=== PATIENT | male | born 1980 | race Caucasian/White ===

== ENCOUNTER 2017-05-11 18:13 | Observation (INO) | payer OTHER ==
[~2017-05-11] VITALS: Ht 193 cm; Wt 170.0 kg
[~2017-05-11 18:13] MED LIST: AMLO10TA2 PO; ASPI-110 PO; ATOR40TA16 PO; DULO1CAP2 PO; GABA800T PO; GLIP10TA6 PO; IBUP800T23 PO; ISOS30TA3 PO; METF1000 PO; OMEP40CA2 PO; PARO1TAB73 PO; TAMS0.4C4 PO
[2017-05-11 18:16] VITALS: BP 143/85; PULSE 135; RESP 20; TEMP 98.7; O2SAT 97
[2017-05-11 18:59] VITALS: BP 123/62; PULSE 115; RESP 16; O2SAT 94
[2017-05-11] MEDS ORDERED: LEVO75TA3 PO (19:10)
[2017-05-11] MEDS ORDERED: ASPI325T PO (19:10)
[2017-05-11] MEDS ORDERED: LANTUS2P SQ (19:10)
[2017-05-11] MEDS ORDERED: CANA300T PO (19:10)
[2017-05-11] MEDS ORDERED: NOVORP2 SQ (19:10)
[2017-05-11] MEDS ORDERED: MORPHINE SULFATE 4 MG/ML INJ IV PUSH ONE (19:15)
[2017-05-11] MEDS ORDERED: ASPIRIN 81 MG CHEW TAB PO ONE ×2 (19:15→22:00)
--- NOTE | 2017-05-11 19:15 | PD ---
HPI Chief Complaint: Chest Pain Time Seen by Provider: 18:53 Travel History International Travel<30 days: No Contact w/Intl Traveler<30days: No Traveled to known affect area: No History of Present Illness HPI c/o substernal cp, pressure, nonrad, 04/05, intermittently since wednesday along with syncopal episodes (2 since wednesday). he is currently seeing dr simon (?sp) and will have loop recorder placed on may 24. pt states pcp is in [place]. PFSH Past Medical History Arthritis: Yes Blood Disorders: No Depression: Yes Heart Rhythm Problems: No Cancer: Yes (HODGKINS) Cardiac Catheterization: No Cardiovascular Problems: No High Cholesterol: Yes Chemotherapy: Yes (HX CHEMO OF AND RADIATION TREATMENTS) Chest Pain: Yes Congestive Heart Failure: No Cerebrovascular Accident: Yes Coronary Artery Disease: Yes Diabetes: Yes Patient Takes Glucophage: Yes Diminished Hearing: No Endocrine: No GERD: Yes Genitourinary: No Headaches: Yes Hypertension: Yes Immune Disorder: No Kidney Stones: Yes Musculoskeletal: No Neurologic: Yes Psychiatric: Yes Reproductive: No Respiratory: No Migraines: Yes Myocardial Infarction: No Radiation Therapy: Yes (2006) Seizures: Yes Sleep Apnea: Yes Ulcer: Yes Influenza Vaccination: No Past Surgical History Abdominal Surgery: Yes (GALLBLADDER) Appendectomy: Yes Cardiac Surgery: No Cholecystectomy: Yes Coronary Artery Bypass Graft: No Ear Surgery: No Endocrine Surgery: No Eye Surgery: No Genitourinary Surgery: Yes (urethria opening) Gynecologic Surgery: No Oral Surgery: No Thoracic Surgery: No Tonsillectomy: Yes (AND ADENOIDS) Other Surgery: Yes (ING HERNIA X 2; CHEST BIOPSY) Family History Family Myocardial Infarction: Yes (GRANDMA (MOTHER SIDE) Social History Alcohol Use: Yes (OCC) Tobacco Use: No Substance Use: No Allergies-Medications (Allergen,Severity, Reaction): Coded Allergies: benzonatate (Verified Allergy, Severe, SOB, 05/11/17) lidocaine (Verified Allergy, Severe, RASH, 05/11/17) penicillin G (Verified Allergy, Severe, 05/11/17) ALL "CILLINS" Influenza Virus Vaccines (Verified Adverse Reaction, Severe, Blurred Vision, 05/11/17) dizzines and blurred vision pneumococcal vaccine (Verified Adverse Reaction, Severe, Blurred Vision, ) blurred vision and dizziness Uncoded Allergies: DERMABOND (Allergy, Unknown, 02/20/17) Reported Meds & Prescriptions Reported Meds & Active Scripts Active Reported Invokana (Canagliflozin) 300 Mg Tab 300 Mg PO DAILY Take before 1st meal of day. Novolin R Inj (Insulin Human Regular) 1,000 Unit/10 Ml Vial 0 SQ DIRECTED Sliding Scale As Directed. Lantus Inj (Insulin Glargine) 100 Unit/Ml Inj 5 Unit SQ HS Levothyroxine (Levothyroxine Sodium) 75 Mcg Tab 75 Mcg PO DAILY Aspirin 325 Mg Tab 325 Mg PO ONCE Omeprazole 40 Mg Cap 40 Mg PO DAILY Isosorbide Mononitrate ER (Isosorbide Mononitrate) 30 Mg Yoel 30 Mg PO DAILY Atorvastatin (Atorvastatin Calcium) 40 Mg Tab 40 Mg PO HS Duloxetine DR (Duloxetine HCl) 30 Mg Capdr 30 Mg PO DAILY Glipizide 10 Mg Tab 15 Mg PO BIDAC Take 30 minutes before a meal Tamsulosin (Tamsulosin HCl) 0.4 Mg Cap 0.8 Mg PO HS Gabapentin 800 Mg Tab 800 Mg PO TID Paroxetine (Paroxetine HCl) 30 Mg Tab 30 Mg PO DAILY Amlodipine (Amlodipine Besylate) 10 Mg Tab 10 Mg PO DAILY Metformin (Metformin HCl) 1,000 Mg Tab 1,000 Mg PO BIDPC With meals Ibuprofen 800 Mg Tab 800 Mg PO TID Review of Systems Except as stated in HPI: all other systems reviewed are Neg Cardiovascular: Positive: Chest Pain or Discomfort, Palpitations Physical Exam Narrative GENERAL: obese in no major distress in appearance but claiming he has 10/10 cp SKIN: Warm and dry. HEAD: Atraumatic. Normocephalic. EYES: Pupils equal and round. No scleral icterus. No injection or drainage. ENT: No nasal bleeding or discharge. Mucous membranes pink and moist. NECK: Trachea midline. No JVD. CARDIOVASCULAR: Regular rate and rhythm. RESPIRATORY: No accessory muscle use. Clear to auscultation. Breath sounds equal bilaterally. GASTROINTESTINAL: Abdomen soft, non-tender, nondistended. MUSCULOSKELETAL: Extremities without clubbing, cyanosis, or edema. No obvious deformities. NEUROLOGICAL: Awake and alert. No obvious cranial nerve deficits. Motor grossly within normal limits. Five out of 5 muscle strength in the arms and legs. Normal speech. PSYCHIATRIC: Appropriate mood and affect; insight and judgment normal. Data Data Last Documented VS Vital Signs Date Time Temp Pulse Resp B/P Pulse Ox O2 Delivery O2 Flow Rate FiO2 05/11/17 21:00 104 18 109/59 95 Room Air 05/11/17 18:16 98.7 Orders Electrocardiogram (05/11/17 18:) Complete Blood Count With Diff (05/11/17 18:26) Basic Metabolic Panel (Bmp) (05/11/17 18:26) Ckmb (Isoenzyme) Profile (05/11/17 18:26) Troponin I (05/11/17 18:) Chest, Single Ap (05/11/17 18:) Iv Access Insert/Monitor (05/11/17 18:) Ecg Monitoring (05/11/17 18:) Oxygen Administration (05/11/17 18:) Oximetry (05/11/17 18:) Prothrombin Time / Inr (Pt) (05/11/17 18:) Aspirin Chew (Aspirin Chew) (05/11/17 19:15) Morphine Inj (Morphine Inj) (05/11/17 19:15) CKMB (05/11/17 19:12) CKMB% (05/11/17 19:12) Albuterol Concentrated Neb (Albuterol Co (05/11/17 22:00) Insulin Human Regular Inj (Novolin R Inj (05/11/17 22:00) Admit Order (Ed Use Only) (05/11/17 21:58) Labs Laboratory Tests Test 05/11/17 19:12 White Blood Count 13.6 TH/MM3 Red Blood Count 5.01 MIL/MM3 Hemoglobin 14.6 GM/DL Hematocrit 42.9 % Mean Corpuscular Volume 85.5 FL Mean Corpuscular Hemoglobin 29.1 PG Mean Corpuscular Hemoglobin 34.0 % Concent Red Cell Distribution Width 14.0 % Platelet Count 370 TH/MM3 Mean Platelet Volume 7.8 FL Neutrophils (%) (Auto) 71.2 % Lymphocytes (%) (Auto) 18.2 % Monocytes (%) (Auto) 6.2 % Eosinophils (%) (Auto) 3.6 % Basophils (%) (Auto) 0.8 % Neutrophils # (Auto) 9.7 TH/MM3 Lymphocytes # (Auto) 2.5 TH/MM3 Monocytes # (Auto) 0.8 TH/MM3 Eosinophils # (Auto) 0.5 TH/MM3 Basophils # (Auto) 0.1 TH/MM3 CBC Comment DIFF FINAL Differential Comment Prothrombin Time 10.7 SEC Prothromb Time International 1.0 RATIO Ratio Sodium Level 132 MEQ/L Potassium Level 5.7 MEQ/L Chloride Level 98 MEQ/L Carbon Dioxide Level 27.5 MEQ/L Anion Gap 7 MEQ/L Blood Urea Nitrogen 12 MG/DL Creatinine 0.83 MG/DL Estimat Glomerular Filtration 104 ML/MIN Rate Random Glucose 200 MG/DL Calcium Level 8.6 MG/DL Total Creatine Kinase 157 U/L Creatine Kinase MB LESS THAN 0.5 NG/ML Troponin I LESS THAN 0.02 NG/ML MDM Medical Decision Making Medical Screen Exam Complete: Yes Emergency Medical Condition: Yes Medical Record Reviewed: Yes Interpretation(s) sinus tach 126, pmitrale, incomplete LBBB pattern noted Differential Diagnosis mi v nonstemi v pna v dysrhythmia v anemia v electrolyte abnl Narrative Course NO E/O ANEMIA, NO DYSRHYTHMIA WHILE IN OBSERVATION IN ED, NO ELECTROLYTE ABNL, NO PNA ON CXR, PATIENT WILL BE ADMITTED TO [facility] FOR FURTHER EVALUATION AND CARE Diagnosis Primary Impression: cp r/o mi Admitting Information Admitting Physician Requests: Observation Ari Davies MD May 11, 2017 19:15
[2017-05-11 19:36] LABS: AUTOMATED NEUTROPHIL # 9.7 TH/MM3 (1.8-7.7); BASOPHIL # 0.1 TH/MM3 (0-0.2); BASOPHIL % 0.8 % (0.0-2.0); EOSINOPHIL # 0.5 TH/MM3 (0-0.4); EOSINOPHIL % 3.6 % (0.0-4.0); HEMATOCRIT 42.9 % (39.0-51.0); HEMO FLAGS DIFF FINAL; LYMPH % 18.2 % (9.0-44.0); LYMPHOCYTE # 2.5 TH/MM3 (1.0-4.8); MEAN CELL VOLUME 85.5 FL (80.0-100.0); MEAN CORPUSCULAR HEMOGLOBIN 29.1 PG (27.0-34.0); MONO % 6.2 % (0.0-8.0); NEUT % 71.2 % (16.0-70.0); PLATELET COUNT 370 TH/MM3 (150-450); RED BLOOD COUNT 5.01 MIL/MM3 (4.50-5.90); WHITE BLOOD COUNT 13.6 TH/MM3 (4.0-11.0)
[2017-05-11 19:45] LABS: PROTHROMBIN TIME - PATIENT 10.7 SEC (9.8-11.6)
--- NOTE | 2017-05-11 20:00 | RADRPT ---
EXAM DATE/TIME: 05/11/2017 19:44 [facility] COMPARISON: No previous studies available for comparison. INDICATIONS : Chest pain. MEDICAL HISTORY : Myocardial infarction. SURGICAL HISTORY : None. ENCOUNTER: Initial ACUITY: 2 days PAIN SCORE: 10/10 LOCATION: Left chest FINDINGS: Trace atelectasis seen at both bases. No large effusion demonstrated. No pneumothorax. Heart size wit hin normal limits. CONCLUSION: Minimal bibasilar atelectasis. Castillo Soares MD on May 11, 2017 at 19:58 Board Certified Radiologist. This report was verified electronically.
[2017-05-11 20:18] LABS: ANION GAP 7 MEQ/L (5-15); BICARBONATE 27.5 MEQ/L (21.0-32.0); BLOOD UREA NITROGEN 12 MG/DL (7-18); CHLORIDE 98 MEQ/L (98-107); CREATINE KINASE 157 U/L (39-308); GLOMERULAR FILTRATION RATE 104 ML/MIN (>89); SODIUM (NA) 132 MEQ/L (136-145)
[2017-05-11 20:21] LABS: POTASSIUM 5.7 MEQ/L (3.5-5.1)
[2017-05-11 20:33] LABS: CKMB LESS THAN 0.5 NG/ML (0.5-3.6)
[2017-05-11 21:00] VITALS: BP 109/59; PULSE 104; RESP 18; O2SAT 95
[2017-05-11] MEDS ORDERED: INSULIN HUMAN REGULAR 1,000 UNITS/10 ML VIAL IV PUSH ONE (22:00)
[2017-05-11] MEDS ORDERED: RESP: ALBUTEROL CONC 2.5 MG/0.5 ML NEB NEB ONE (22:00)
[2017-05-11] MEDS ORDERED: ONDANSETRON HCL 4 MG/2 ML VIAL IV PRN (22:00)
[2017-05-11] MEDS ORDERED: NITROGLYCERIN 0.4 MG SL 25 TABS/BTL SL PRN (22:00)
[2017-05-11 22:13] VITALS: O2SAT 97
[2017-05-11] MEDS ORDERED: RESP: ALBUTEROL 2.5 MG/3 ML NEB (SCH) NEB ONE (22:15)
[2017-05-11] MEDS: SODIUM CHLOR 0.9% 1000 ML INJ 1,000 ML IV SCH (22:33)
[2017-05-11] MEDS: HEPARIN SODIUM - SQ 10,000 UNITS/ML VIAL SQ SCH (22:35)
[2017-05-11] MEDS: MORPHINE SULFATE 4 MG/ML INJ IV PRN (22:35)
[2017-05-11 22:56] VITALS: BP 112/108
[2017-05-11 23:19] VITALS: BP 130/72; PULSE 108; RESP 18; TEMP 99.2; O2SAT 97
[2017-05-11 23:26] LABS: CREATINE KINASE 43 U/L (39-308)
--- NOTE | 2017-05-12 00:30 | EKG ---
Date Performed: 05/11/2017 Time Performed: 18:30:54 PTAGE: 37 years EKG: SINUS TACHYCARDIA MODERATE INTRAVENTRICULAR CONDUCTION DELAY ABNORMAL RHYTHM ECG PREVIOUS TRACING : 03/02/2010 10.43 Compared to the previous tracing rate has increased DOCTOR: Marco Antonio Crouch Interpretating Date/Time 05/12/2017 00:28:02
[2017-05-12 00:59] VITALS: PULSE 98
[2017-05-12 03:14] VITALS: BP 130/70; PULSE 106; PULSE 93; RESP 18; TEMP 98.2; O2SAT 99
[2017-05-12 03:22] LABS: CREATINE KINASE 42 U/L (39-308)
[2017-05-12] MEDS: MORPHINE SULFATE 4 MG/ML INJ IV PRN ×2 (04:04→11:50)
[2017-05-12 04:07] VITALS: PULSE 90
[2017-05-12 07:00] VITALS: PULSE 89
[2017-05-12] MEDS ORDERED: GLUCAGON 1 MG/ML VIAL IM/SQ PRN (08:45)
[2017-05-12] MEDS ORDERED: DEXTROSE 50% IN WATER 50 ML VIAL(D50) IV PRN (08:45)
[2017-05-12] MEDS ORDERED: NON-FORMULARY DRUG (Omeprazole 40 MG) PO SCH (09:00)
[2017-05-12] MEDS ORDERED: DULoxetine HCl DR 30 MG CAP PO SCH (09:00)
[2017-05-12] MEDS ORDERED: ISOSORBIDE MONONITRATE 30 MG TAB PO SCH (09:00)
[2017-05-12] MEDS ORDERED: GABAPENTIN 400 MG CAP PO SCH (09:00)
[2017-05-12] MEDS ORDERED: PANTOPRAZOLE SOD 40 MG DELAYED RELEASE TAB PO SCH (09:00)
[2017-05-12] MEDS ORDERED: ASPIRIN 325 MG TAB PO ONE (09:30)
[2017-05-12] MEDS ORDERED: PARoxetine HCL 20 MG TAB PO SCH (09:30)
[2017-05-12] MEDS ORDERED: LEVOTHYROXINE SODIUM 75 MCG TAB PO SCH (09:30)
[2017-05-12] MEDS ORDERED: PILL SPLITTER OTHER PRN (10:00)
[2017-05-12] MEDS ORDERED: REGADENOSON INJ 0.4 MG/5 ML SYR ONE (10:08)
[2017-05-12] MEDS ORDERED: INSULIN ASPART SUPPLEMENTAL SCALE SQ SCH (11:00)
--- NOTE | 2017-05-12 11:13 | HHI.HP ---
HPI Primary Care Physician Non-Staff Chief Complaint Chest pain History of Present Illness This is a 37-year-old male that presents to ED with history of hypertension, diabetes, hyperlipidemia, Hodgkin's lymphoma, congestive heart failure, CVA, and hypothyroidism complaining of intermittent left-sided chest discomfort that feels like "an elephant sitting on me." Lasting 30 minutes diaphoresis on nothing to bring on the discomfort. Nothing to worsen or improve. He states that a 70 times. He also states that he has been passing out. And further states he passes out on average 3-4 times a day and has done so for 1 at 2 years. He was seen at this hospital a couple days ago for the same was discharged. He has appointment with Dr. Mercado have a loop recorder placed on May 24. Review of Systems General: Patient denies fevers, chills recent, and recent travel HEENT: Patient denies headache, sore throat, difficulty swallowing. Cardiovascular: Has the chest discomfort as mentioned above. Denies sensation of heart beating rapidly or irregularly. States he has had 3-4 syncopal episodes a day for the last 1-1/2-2 years. At times diaphoretic. Respiratory: Occasional shortness of breath. Denies inspirational chest discomfort. Denies coughing wheezing or hemoptysis. GI: Occasional nausea. Patient denies vomiting, diarrhea, abdominal pain, bloody stools. Musculoskeletal: Patient denies joint pain or edema. Denies calf pain or edema. Neurovascular: Patient denies numbness, tingling, weakness in extremities. Denies headache. Endocrine: Denies polyuria and polydipsia. Hematologic: Denies easy bruising. Skin: Denies rash or itching. Past Family Social History Allergies: Coded Allergies: benzonatate (Verified Allergy, Severe, SOB, 05/11/17) lidocaine (Verified Allergy, Severe, RASH, 05/11/17) penicillin G (Verified Allergy, Severe, 05/11/17) ALL "CILLINS" Influenza Virus Vaccines (Verified Adverse Reaction, Severe, Blurred Vision, 05/11/17) dizzines and blurred vision pneumococcal vaccine (Verified Adverse Reaction, Severe, Blurred Vision, ) blurred vision and dizziness Uncoded Allergies: DERMABOND (Allergy, Unknown, 02/20/17) Past Medical History Hypertension, diabetes, hyperlipidemia, hypothyroidism, history of Hodgkin's lymphoma with chemotherapy and radiation in the past. Congestive heart failure and CVA. Obesity. Past Surgical History Cholecystectomy, inguinal hernia repair, and tonsillectomy. Reported Medications Reported Meds & Active Scripts Active Reported Invokana (Canagliflozin) 300 Mg Tab 300 Mg PO DAILY Take before 1st meal of day. Novolin R Inj (Insulin Human Regular) 1,000 Unit/10 Ml Vial 0 SQ DIRECTED Sliding Scale As Directed. Lantus Inj (Insulin Glargine) 100 Unit/Ml Inj 5 Unit SQ HS Levothyroxine (Levothyroxine Sodium) 75 Mcg Tab 75 Mcg PO DAILY Aspirin 325 Mg Tab 325 Mg PO ONCE Omeprazole 40 Mg Cap 40 Mg PO DAILY Isosorbide Mononitrate ER (Isosorbide Mononitrate) 30 Mg Yoel 30 Mg PO DAILY Atorvastatin (Atorvastatin Calcium) 40 Mg Tab 40 Mg PO HS Duloxetine DR (Duloxetine HCl) 30 Mg Capdr 30 Mg PO DAILY Glipizide 10 Mg Tab 15 Mg PO BIDAC Take 30 minutes before a meal Tamsulosin (Tamsulosin HCl) 0.4 Mg Cap 0.8 Mg PO HS Gabapentin 800 Mg Tab 800 Mg PO TID Paroxetine (Paroxetine HCl) 30 Mg Tab 30 Mg PO DAILY Amlodipine (Amlodipine Besylate) 10 Mg Tab 10 Mg PO DAILY Metformin (Metformin HCl) 1,000 Mg Tab 1,000 Mg PO BIDPC With meals Ibuprofen 800 Mg Tab 800 Mg PO TID Active Ordered Medications Current Medications Medications (Trade) Dose Ordered Sig/Darlyn Route Start Time Stop Time Status Last Admin (NS 1000 ml Inj) 1,000 ml @ 100 mls/hr Q10H IV 05/11/17 21:59 05/11/17 22:33 (Morphine Inj) 2 mg Q4H PRN IV 05/11/17 22:00 05/12/17 04:04 (Zofran Inj) 4 mg Q6H PRN IV 05/11/17 22:00 (Protonix) 40 mg DAILY PO 05/12/17 09:00 (Nitrostat Sl) 0.4 mg Q5M PRN SL 05/11/17 22:00 (Heparin Inj) 5,000 units Q12H SQ 05/11/17 22:00 05/11/17 22:35 (Norvasc) 10 mg DAILY PO 05/12/17 09:00 (Lipitor) 40 mg HS PO 05/12/17 21:00 (Cymbalta Dr) 30 mg DAILY PO 05/12/17 09:00 (Neurontin) 800 mg TID PO 05/12/17 09:00 (Imdur) 30 mg DAILY PO 05/12/17 09:00 (Synthroid) 75 mcg DAILY@06 PO 05/12/17 09:30 (Flomax) 0.8 mg HS PO 05/12/17 21:00 (Paxil) 30 mg DAILY PO 05/12/17 09:30 (D50w (Vial) Inj) 25 ml UNSCH PRN IV 05/12/17 08:45 (Glucagon Inj) 1 mg UNSCH PRN IM/SQ 05/12/17 08:45 (Pill Splitter) 1 ea UNSCH PRN OTHER 05/12/17 10:00 Family History Not aware of his family medical history. Social History Patient does not smoke or use illicit drugs. Has occasional alcohol. Physical Exam Vital Signs Vital Signs Date Time Temp Pulse Resp B/P Pulse Ox O2 Delivery O2 Flow Rate FiO2 05/12/17 07:00 89 05/12/17 04:11 20 05/12/17 04:07 90 05/12/17 03:14 98.2 93 18 130/70 99 05/12/17 00:59 98 05/11/17 23:19 99.2 108 18 130/72 97 05/11/17 22:56 108 18 112/108 98 05/11/17 22:13 97 21 05/11/17 21:00 104 18 109/59 95 Room Air 05/11/17 18:59 115 16 123/62 94 Room Air 05/11/17 18:16 98.7 135 20 143/85 97 Room Air Laboratory Laboratory Tests Test 05/11/17 05/11/17 05/12/17 19:12 22:30 02:00 White Blood Count 13.6 Red Blood Count 5.01 Hemoglobin 14.6 Hematocrit 42.9 Mean Corpuscular Volume 85.5 Mean Corpuscular Hemoglobin 29.1 Mean Corpuscular Hemoglobin 34.0 Concent Red Cell Distribution Width 14.0 Platelet Count 370 Mean Platelet Volume 7.8 Neutrophils (%) (Auto) 71.2 Lymphocytes (%) (Auto) 18.2 Monocytes (%) (Auto) 6.2 Eosinophils (%) (Auto) 3.6 Basophils (%) (Auto) 0.8 Neutrophils # (Auto) 9.7 Lymphocytes # (Auto) 2.5 Monocytes # (Auto) 0.8 Eosinophils # (Auto) 0.5 Basophils # (Auto) 0.1 CBC Comment DIFF FINAL Differential Comment Prothrombin Time 10.7 Prothromb Time International 1.0 Ratio Sodium Level 132 Potassium Level 5.7 Chloride Level 98 Carbon Dioxide Level 27.5 Anion Gap 7 Blood Urea Nitrogen 12 Creatinine 0.83 Estimat Glomerular Filtration 104 Rate Random Glucose 200 Calcium Level 8.6 Total Creatine Kinase 157 43 42 Creatine Kinase MB LESS THAN 0.5 Troponin I LESS THAN 0.02 LESS THAN 0.02 LESS THAN 0.02 Result Diagram: 05/11/17191105/11/171911 Imaging Last 48 hours Impressions Chest X-Ray 05/11/171825 Signed Impressions: Service Date/Time: Thursday, May 11, 2017 19:44 - CONCLUSION: Minimal bibasilar atelectasis. Castillo Soares MD Course EKGs have sinus rhythm without significant ST segment depressions or elevations. Assessment and Plan Assessment and Plan * Chest pain: Patient has had serial cardiac enzymes and EKGs for ruling out purposes. He was seen by Dr. Blair Moore of cardiology in the chest pain center and he will undergo a Lexiscan. Dr. Moore also spoke with Dr. Mercado and he will try to see the patient today however likely patient will have loop recorder placed on outpatient basis. Disposition pending results of the stress test. * Hypertension: Continue current medication. * Hyperlipidemia: Continue current medication. * Hypothyroidism: Continue current medication. * Obesity: Patient has been counseled on the importance of diet, excised, and weight loss. * Diabetes: Patient will be on sliding scale coverage but should resume his medication at discharge. Patient is stable at this time. He is agreeable to this plan. Davy Rivero May 12, 2017 11:13
[2017-05-12 11:29] VITALS: BP 105/60; PULSE 76; RESP 18; TEMP 98.2; O2SAT 97
[2017-05-12] MEDS: HEPARIN SODIUM - SQ 10,000 UNITS/ML VIAL SQ SCH (11:42)
[2017-05-12] MEDS: SODIUM CHLOR 0.9% 1000 ML INJ 1,000 ML IV SCH (11:43)
--- NOTE | 2017-05-12 11:50 | RADRPT ---
EXAM DATE/TIME: 05/12/2017 09:21 [facility] COMPARISON: No previous studies available for comparison. INDICATIONS : Mid chest pain with two syncopal episodes for four days. Angina. DOSE: 35.0 mCi Tc99m Myoview at stress. 11.0 mCi Tc99m Myoview at rest. 0.4 mg Lexiscan STRESS SYMPTOMS: Nausea and dyspnea. EJECTION FRACTION: 62% MEDICAL HISTORY : Lymphoma. Diabetes mellitus type 2. Hypertension. SURGICAL HISTORY : Cholecystectomy. Appendectomy. Inguinal hernia repair. ENCOUNTER: Initial ACUITY: 4 - 6 days PAIN SCALE: 7/10 LOCATION: Midsternal chest TECHNIQUE: The patient underwent pharmacologic stress with infusion of prescribed dose. Continuous ECG tracing was monitored during stress. Gated SPECT imaging was performed after stress and conventional SPECT i maging was performed at rest. The examination was performed on a SPECT/CT scanner, both attenuation and non-corrected datasets were reviewed. FINDINGS: DISTRIBUTION: The maximum perfused segment at stress is in the inferior wall. PERFUSION STUDY: The exam demonstrates a mild in severity, fixed perfusion defect involving the anterior wall. There i s no associated wall motion abnormality. No reversible perfusion defect is identified. GATED STUDY: There is intact wall motion and thickening without hypokinetic or dyskinetic segments. CONCLUSION: 1. No reversible perfusion defect indicate stress-induced myocardial ischemia identified. 2. There is a fixed perfusion defect in the anterior wall suggesting possibility of an old infarct. T here is no associated wall motion abnormality. RISK CATEGORY: Low (<1% Annual Mortality Rate) Yadiel Min MD on May 12, 2017 at 11:46 Board Certified Radiologist. This report was verified electronically.
--- NOTE | 2017-05-12 13:12 | HHI.DCPOC ---
Discharge Care Plan Diagnosis: (1) Chest pain (2) Hypertension (3) Hyperlipidemia (4) Obesity Goals to Promote Your Health * To prevent worsening of your condition and complications * To maintain your health at the optimal level Directions to Meet Your Goals Take your medications as prescribed Follow your dietary instruction Follow activity as directed Keep your appointments as scheduled Take your immunizations and boosters as scheduled If your symptoms worsen call your PCP, if no PCP go to Urgent Care Center or Emergency Room Smoking is Dangerous to Your Health. Avoid second hand smoke Call the 24-hour hour crisis hotline for domestic abuse at Davy Rivero May 12, 2017 13:12
[2017-05-12 13:47] VITALS: BP 100/54; PULSE 87; RESP 20; TEMP 98.2; O2SAT 95
--- NOTE | 2017-05-12 15:56 | EKG ---
Date Performed: 05/12/2017 Time Performed: 01:45:44 PTAGE: 37 years EKG: Sinus rhythm NORMAL ECG PREVIOUS TRACING : 05/11/2017 18.30 Since previous tracing, no significant change noted DOCTOR: Blair Moore Interpretating Date/Time 05/12/2017 15:54:10
--- NOTE | 2017-05-12 15:57 | EKG ---
Date Performed: 05/11/2017 Time Performed: 22:36:29 PTAGE: 37 years EKG: SINUS TACHYCARDIA ABNORMAL RHYTHM ECG NO PREVIOUS TRACING DOCTOR: Blair Moore Interpretating Date/Time 05/12/2017 15:54:57
[2017-05-12] MEDS ORDERED: TAMSULOSIN HCL 0.4 MG CAP PO SCH (21:00)
[2017-05-12] MEDS ORDERED: ATORVASTATIN 40 MG TAB PO SCH (21:00)
--- NOTE | 2017-05-13 14:56 | TR ---
Date Performed: 05/12/2017 Time Performed: 10:06:14 DOCTOR: Ian Nieves DRUG LIST: CLINICAL HISTORY: ANGINA REASON FOR TEST: Angina REASON FOR ENDING: OBSERVATION: CONCLUSION: Lexiscan stress test was performed under standard four minute protocol. Radionuclid e was injected one minute prior to ending the test. No electrocardiographic abormalities were present to suggest ischemia. Nuclear imaging and interpretation are pending. COMMENTS:
[2017-06-26] MEDS ORDERED: CANA300T PO (19:00)
[2017-06-26] MEDS ORDERED: VENTAER INH (21:37)
[2017-06-26] MEDS ORDERED: ZITH250T PO (21:37)
[2017-06-26] MEDS ORDERED: MEDR4PAK PO (21:37)
== END 2017-05-12 16:24 | disposition home or self-care (01) ==
LOC: NEPC 18:13 → NEDA 22:00 → NEPFCDU 23:04
PROVIDERS: ADMIT Internal Medicine Interventional Cardiology; ATTEND Internal Medicine Interventional Cardiology
DX: I25.10 Atherosclerotic heart disease of native coronary artery without angina pectoris (principal); R55 Syncope and collapse; I11.0 Hypertensive heart disease with heart failure; I50.9 Heart failure, unspecified; E03.9 Hypothyroidism, unspecified; E11.9 Type 2 diabetes mellitus without complications; E66.9 Obesity, unspecified; E78.5 Hyperlipidemia, unspecified; G47.30 Sleep apnea, unspecified; J98.11 Atelectasis; K21.9 Gastro-esophageal reflux disease without esophagitis; Z85.71 Personal history of Hodgkin lymphoma; Z86.73 Personal history of transient ischemic attack (TIA), and cerebral infarction without residual deficits; Z87.442 Personal history of urinary calculi
CPT/HCPCS: 71010; 78452; 80048; 82550; 82552; 84484; 85025; 85610; 93005; 93017; 94664; 96365; 96372; 96375; 96376; 99285; A9502; G0378; J1644; J1815; J2270; J2785; J7030; J7613

== ENCOUNTER 2017-05-18 06:27 | Day surgery (SDC) | payer OTHER, MEDICAID ==
[~2017-05-18] VITALS: Ht 193 cm; Wt 151.6 kg
[~2017-05-18 06:27] MED LIST changes: -ASPI-110 PO; +ASPI325T PO; +CANA300T PO; +LANTUS2P SQ; +LEVO75TA3 PO; +NOVORP2 SQ
[2017-05-18] MEDS ORDERED: PROPOFOL 200 MG/20 ML AMP OTHER ONE (06:28)
[2017-05-18] MEDS ORDERED: NO Heparin, Lovenox, Coumadin at least 12 hours prior to procedure. PRN (07:00)
[2017-05-18] MEDS ORDERED: SODIUM CHLORID 0.9% 500 ML INJ 500 ML IV SCH (07:00)
[2017-05-18] MEDS ORDERED: NS 1000 ML IV SCH (07:00)
[2017-05-18] MEDS ORDERED: LORazepam 1 MG TAB SL SCH ×2 (07:00)
[2017-05-18] MEDS ORDERED: Hold AM Insulin & AM Hypoglycemic medications in diabetic patients PRN (07:00)
[2017-05-18] MEDS ORDERED: CHLORHEXIDINE GLUCONATE 2 % 1 PACK (2 CLOTHS) TOPICAL SCH (07:00)
[2017-05-18] MEDS ORDERED: VANCOMYCIN 1000 MG/NS 250 ML IV SCH ×2 (07:00)
[2017-05-18] MEDS ORDERED: MUPIROCIN 2% OINT 1 APPLIC/GM SYR NASAL SCH (07:00)
[2017-05-18] MEDS ORDERED: METOPROLOL TARTRATE 25 MG TAB PO PRN (07:15)
[2017-05-18] MEDS ORDERED: POVIDONE IODINE 5% (ANTISEPSIS KIT) 4 APPLICATIONS EACH NARE PRN (07:15)
[2017-05-18] MEDS ORDERED: INSULIN HUMAN REGULAR 1,000 UNITS/10 ML VIAL SQ PRN (07:15)
[2017-05-18] MEDS ORDERED: CHLORHEXIDINE GLUCONATE 2 % 1 PACK (2 CLOTHS) TOPICAL PRN (07:15)
[2017-05-18] MEDS ORDERED: SODIUM CHLORID 0.9% 500 ML IV PRN (07:15)
[2017-05-18] MEDS ORDERED: LACTATED RINGER'S 1000 ML IV PRN (07:15)
[2017-05-18 07:28] VITALS: BP 165/85; PULSE 91; RESP 18; TEMP 98.2; O2SAT 97
[2017-05-18 07:44] LABS: AUTOMATED NEUTROPHIL # 6.1 TH/MM3 (1.8-7.7); BASOPHIL # 0.1 TH/MM3 (0-0.2); BASOPHIL % 0.9 % (0.0-2.0); EOSINOPHIL # 0.4 TH/MM3 (0-0.4); EOSINOPHIL % 4.4 % (0.0-4.0); HEMATOCRIT 38.1 % (39.0-51.0); HEMO FLAGS DIFF FINAL; LYMPH % 20.9 % (9.0-44.0); LYMPHOCYTE # 1.9 TH/MM3 (1.0-4.8); MEAN CELL VOLUME 85.1 FL (80.0-100.0); MEAN CORPUSCULAR HEMOGLOBIN 29.7 PG (27.0-34.0); MONO % 8.5 % (0.0-8.0); NEUT % 65.3 % (16.0-70.0); PLATELET COUNT 309 TH/MM3 (150-450); RED BLOOD COUNT 4.48 MIL/MM3 (4.50-5.90); RED CELL DISTRIBUTION WIDTH 13.9 % (11.6-17.2); WHITE BLOOD COUNT 9.3 TH/MM3 (4.0-11.0)
[2017-05-18 07:54] LABS: BICARBONATE 26.6 MEQ/L (21.0-32.0); POTASSIUM 3.3 MEQ/L (3.5-5.1)
[2017-05-18 07:59] LABS: PROTHROMBIN TIME - PATIENT 10.7 SEC (9.8-11.6)
[2017-05-18] MEDS ORDERED: KETAMINE HCL 500 MG/5 ML VIAL ONE (09:45)
[2017-05-18] MEDS ORDERED: MIDAZOLAM HCL 2 MG/2 ML VIAL ONE ×2 (09:45→15:03)
[2017-05-18] MEDS ORDERED: HEPARIN-NS/PF INJ 2,000 ML ONE (10:01)
[2017-05-18] MEDS ORDERED: ISOPROTERENOL HCL 1 MG/5 ML AMP ONE (10:40)
--- NOTE | 2017-05-18 10:42 | CATHPROC ---
[facility] HIS Report Study Information Study Number Admission Scheduled Start Study Start [id number] May 18 2017 6:27AM 05/18/2017 May 18 2017 9:21AM [place] Service Electrophysiology Study Admit Source Facility Department Other [facility] - Waterworks Chief Engineer Physician and Clinical Staff Initial Mariya Goodman Cuff Setter Overlock Aleta Ash,TORRIE Other Anesthesia, METAL TEMPERER Other [place], Korin,COATER HAND TECH2 Recorder Leelee Alas RN Scrub Aleta Ash,TORRIE Scrub Pat Goldstein RT(R) TECH2 Equipment Time Cook Starch Description Size Mfg Part Number Used/Scraped [id number] 10:17 [employer] IND[employer]RIES PACK, CCL CUSTOM * Used *[id number] 10:17 [employer] PACER ZENDEJAS, LIMB * 2530 *[id number] Used [id number] 10:17 [employer] MEDICAL BLANKET,WARM AIR CCL * Used *[id number] [id number] 10:18 [employer] CATHETER, JSN, QUAD FR 5 Used *[id number] 10:18 [employer] CATHE[employer], JSN, QUAD FR 5 Used *[id number] 10:18 [employer] CATHETER, JSN, QUAD FR 5 Used *[id number] 10:18 [employer] CATHETER, JSN, QUAD FR 5 Used *[id number] [id number] 10:18 [employer] MED[employer] SHEATH, EPS, FR5 FAST CATH FR 5 Used *[id number] 384872 10:18 [employer] SHE[employer], EPS, FR5 FAST CATH FR 5 Used *[id number] [id number] 10:18 [employer] SHE[employer], EPS, FR5 FAST CATH FR 5 Used *[id number] 10:18 [employer] SHE[employer], EPS, FR6 FAST CATH FR 6 [id number] Used History: Allergies Allergy Reaction Influenza Virus Vaccines Blurred Vision lidocaine RASH benzonatate SOB penicillin G pneumococcal vaccine Blurred Vision DERMABOND History: Risk Factors Hypertension Dyslipidemia Yes Yes Chronic Lung Disease Labs Hgb (g/dl) Hct (%) RBC (MIL/MM3) WBC (l/cumm) Platelets (thousands) 11.60-17.00 35.00-51.00 4.00-5.90 4.00-11.00 150.00-450.00 13.0 38 4.4 9.3 309 Glucose (mg/dl) BUN (mg/dl) Creatinine (mg/dl) BUN:Creatinine (1:x) 74.00-106.00 7.00-18.00 0.50-1.30 10.00-20.00 129 10 0.8 12.5 Na (meq/l) K (meq/l) 136.00-145.00 3.50-5.10 141 3.3 INR (PTT:PT) 0.90-1.10 1 Medication Medication Total Dose (Bolus/Oral) Medication Total Dosage/Unit 1% XYLOCAINE 20 mL Medications (Bolus/Oral) Medication Time Given Dosage/Unit Administered By Reason 1% XYLOCAINE 05/18/2017 10:20:27 AM 20 mL Mariya Mercado 20 mL 1% XYLOCAINE given in lab by Mariya Mercado in Right Groin via Subcutaneous. Medication (Drip) Medication Time Given Dosage/Unit Concentration/Unit Diluent (ml) Solution ISUPREL 05/18/2017 10:44:13 AM 2 mcg/min 1 mg 250 NaCl .9 2 mcg/min ISUPREL given in lab by JULIANO Hernandez via Peripheral IV. Pump/Drip Flow = 30 ml/hr using NaCl .9 with a concentration of 1 mg in 250 ml. Ordered by Mariya Mercado. Reason: As per physicians verbal order. Initial Case Assessment Cardiovascular HR Rhythm NIBP Chest Pain 91 sr 113/76 0 Edema Present Skin color Skin None Normal Warm Dry Circulatory - Right Pulses Dorsalis Pedis 2 Scale (0,1,2,3,4,d) Circulatory - Left Pulses Dorsalis Pedis 2 Scale (0,1,2,3,4,d) Circulatory - Lower Extremities Color Lower Right Color Lower Left Normal Normal Neurological State Oriented to time-place- Alert Moves all extremities person Respiration - General Respiration Rate SpO2 (%) (B/min) 20 97 Chronological Log Time Study Chronological Log 9:52:29 Patient arrived via Bed. 9:52:32 Patient Name, D.O.B, / [place] Verified By R.N. 9:52:34 Consent signed by the physician and the patient and verified by the Waterworks Chief Engineer staff. 9:52:36 Pre-op and post- op instructions given; patient acknowledges understanding of instructions. 9:52:38 Verbal Stimulation=2 Physical Stimulation=2 Airway=2 Respiration=2 TOTAL=8. (0=absent, 1=li mited, 2=present) 9:54:42 Anesthesia at bedside. Assumes care of patient. 9:54:44 Patient has been NPO for More than 6Hrs. 9:54:45 Skin Breakdown- 9:54:46 Patient Warmer Placed on the Table. 9:54:47 Disposable Defibrillator Pads Placed On Patient. 9:54:49 Tung Prominences Protected 9:54:51 A # 20 IV was noted in the Antecubital (left). Grade = 0 0.9ns kvo 9:54:51 A # 22 IV was noted in the Forearm (right). Grade = 0 0.9ns kvo 9:54:53 History and physical on the chart or being dictated. Assessment: Initial Case, HR=91 BPM, Rhythm=sr, UVIY=540/76 mmhg, Chest Pain=0, Edema=None, Col or=Normal, Skin = Warm, Dry Right Pulses: Steve Ped=2 Left Pulses: Steve Ped=2 10:08:29 Lower Right Extremities: Color=Normal Lower Left Extremities: Color=Normal Neurological: State=Alert, Ox3, WILKES Respiration: Resp=20 B/min, SpO2=97 % 10:08:31 Table restraints applied according to hospital policy 10:08:36 Bilateral groins prepped with 2% chlorhexidine, and with a 3 min. waiting time. 10:15:54 MD arrived. 10:18:43 Reference ECG taken Time Out. Correct patient, procedure, procedure equipment, site and side verified with physicia n present. Time 10:20:00 concurred by MD, individual staff and METAL TEMPERER. Time Out #2 - Consents verified, patient in correct position, all results are labled and displa yed, safety precautions 10:20:13 taken, antibiotics administered. Time out concurred by MD, individual staff and METAL TEMPERER in procedu re 10:20:18 Case Start 10:20:27 20 mL 1% XYLOCAINE given in lab by Mariya Mercado in Right Groin via Subcutaneous. 10:20:54 Vascular access was obtained in the Fem Vein (right). 10:20:56 Vascular access was obtained in the Fem Vein (right). 10:21:01 Vascular access was obtained in the Fem Vein (right). 10:21:08 Vascular access was obtained in the Fem Vein (right). 10:22:14 A SHEATH, EPS, FR5 FAST CATH FR 5 was advanced into the Fem Vein (right) using the Modified Seldinger technique. 10:22:20 A SHEATH, EPS, FR5 FAST CATH FR 5 was advanced into the Fem Vein (right) using the Modified Seldinger technique. 10:22:28 A SHEATH, EPS, FR5 FAST CATH FR 5 was advanced into the Fem Vein (right) using the Modified Seldinger technique. 10:23:18 A SHEATH, EPS, FR6 FAST CATH FR 6 was advanced into the Fem Vein (right) using the Modified Seldinger technique. A CATHETER, JSN, QUAD FR 5 was advanced vis Fem Vein (right) and placed in the CS. Placement wa s visually 10:25:29 confirmed under fluoroscopy. A CATHETER, JSN, QUAD FR 5 was advanced vis Fem Vein (right) and placed in the HIS. Placement w as visually 10:27:20 confirmed under fluoroscopy. A CATHETER, JSN, QUAD FR 5 was advanced vis Fem Vein (right) and placed in the RVA. Placement w as visually 10:27:26 confirmed under fluoroscopy. A CATHETER, JSN, QUAD FR 5 was advanced vis Fem Vein (right) and placed in the HRA. Placement w as visually 10:27:31 confirmed under fluoroscopy. 10:28:04 EPS in progress. 2 mcg/min ISUPREL given in lab by Anesthesia, METAL TEMPERER via Peripheral IV. Pump/Drip Flow = 30 ml/hr using NaCl .9 with 10:44:13 a concentration of 1 mg in 250 ml. Ordered by Mariya Mercado. Reason: As per physicians verbal o rder. 10:44:57 Reference ECG taken 10:50:51 Isuprel off. EPS complete 10:52:29 Initial procedure has been completed. Beginning additional procedure. End Study - Contrast Media Used In Study Contrast Total Opened (mL) Total Used (mL) Total Wasted (mL) Unspecified 0 0 0 End Study - Maximum Contrast Load Max Contrast Load (mL) 947.4 End Study - Radiation Exposure Fluoro Time (minutes) 1.1 End Study - Patient Disposition Complications Transferred To Interventional Outcome No Waterworks Chief Engineer Holding successful
[2017-05-18] MEDS ORDERED: LEVOFLOXACIN 500 MG PREMIX INJ 100 ML IV ONE (10:54)
--- NOTE | 2017-05-18 11:15 | CATHPROC ---
[employer] HIS Report Study Information Study Number Admission Scheduled Start Study Start [id number] May 18 2017 6:27AM 05/18/2017 May 18 2017 10:42AM [place] Service Cardiac Pacer/ICD Admit Source Facility Department Other [facility] - Elevator Examiner Physician and Clinical Staff Initial Mariya Goodman Skeet Operator Aleta Ash,WELDER PLASTIC Skeet Operator Pat Goldstein,RT(R) TECH2 Other Anesthesia, FUNDING SPECIALIST Recorder Leelee Alas,AMARI Scrub Korin Marcus,WELDER PLASTIC TECH2 History: Allergies Allergy Reaction Influenza Virus Vaccines Blurred Vision lidocaine RASH benzonatate SOB penicillin G pneumococcal vaccine Blurred Vision DERMABOND History: Risk Factors Hypertension Dyslipidemia Yes Yes Chronic Lung Disease Medication Medication Total Dose (Bolus/Oral) Medication Total Dosage/Unit 2% XYLOCAINE 50 mL Medications (Bolus/Oral) Medication Time Given Dosage/Unit Administered By Reason 2% XYLOCAINE 05/18/2017 11:06:51 AM 50 mL Mariya Mercado 50 mL 2% XYLOCAINE given in lab by Mariya Mercado in Left upper chest via Subcutaneous. Ordered by Mariya Carlson. Medication (Drip) Medication Time Given Dosage/Unit Concentration/Unit Diluent (ml) Solution LEVAQUIN 05/18/2017 10:54:12 AM 100 mL/hr 500 100 NaCl .9 100 mL/hr LEVAQUIN given in lab by Anesthesia, FUNDING SPECIALIST via Peripheral IV. Pump/Drip Flow = 0 ml/hr using NaCl .9 with a concentration of 500 in 100 ml. Ordered by Mariya Mercado. Reason: As per physicians verbal order. Final Case Assessment Cardiovascular HR Rhythm NIBP Chest Pain 100 sr 120/60 0 Edema Present Skin color Skin None Normal Warm Dry Circulatory - Right Pulses Dorsalis Pedis 2 Scale (0,1,2,3,4,d) Circulatory - Left Pulses Dorsalis Pedis 2 Scale (0,1,2,3,4,d) Circulatory - Lower Extremities Color Lower Right Color Lower Left Normal Normal Neurological State Oriented to time-place- Lethargic Moves all extremities person Respiration - General Respiration Rate SpO2 (%) O2 (lpm) (B/min) 18 94 6 Chronological Log Time Study Chronological Log 10:52:30 Initial procedure has been completed. Beginning additional procedure. 10:52:31 2% CHLORHEXIDINE GLUCONATE WASH AND NASAL SWIPE DONE PRIOR TO PROCEDURE. 10:52:36 Anesthesia remains at bedside. Assumes care of patient. gracie 10:53:27 Left Upper Chest Prepped Times Two. 100 mL/hr LEVAQUIN given in lab by Anesthesia, FUNDING SPECIALIST via Peripheral IV. Pump/Drip Flow = 0 ml/h r using NaCl .9 with 10:54:12 a concentration of 500 in 100 ml. Ordered by Mariya Mercado. Reason: As per physicians verbal o rder. Time Out. Correct patient, procedure, procedure equipment, site and side verified with physici an present. Time 11:05:53 concurred by MD, individual staff and FUNDING SPECIALIST. 11:05:56 Case Start Time Out #2 - Consents verified, patient in correct position, all results are labled and displ ayed, safety precautions 11:06:01 taken, antibiotics administered. Time out concurred by MD, individual staff and FUNDING SPECIALIST in proced ure 11:06:51 50 mL 2% XYLOCAINE given in lab by Mariya Mercado in Left upper chest via Subcutaneous. Ord ered by Mariya Mercado. 11:08:27 Loop recorder inserted.. [employer] rep present. 11:09:22 Steri-strips and a sterile dressing applied to site. 11:11:26 Catheters from EPS removed without difficulty 11:12:04 DOCU called. Spoke to Thu 11:12:06 Sheath(s) left in place, secured, 0.9ns kvo conneted and will be removed in Holding Area 11:12:50 Bedside Report will be given. 11:12:53 Implantable Device card placed in patient's chart. 11:12:54 Defibrillator and ground pads removed. Skin intact. 11:13:01 Sterile dressing applied to right groin site Assessment: Final Case, OR=686 BPM, Rhythm=sr, LRJZ=091/60 mmhg, Chest Pain=0, Edema=None, Col or=Normal, Skin = Warm, Dry Right Pulses: Steve Ped=2 Left Pulses: Steve Ped=2 11:13:27 Lower Right Extremities: Color=Normal Lower Left Extremities: Color=Normal Neurological: State=Lethargic, Ox3, WILKES Respiration: Resp=18 B/min, SpO2=94 %, O2=6 lpm 11:20:32 Patient moved to [facility] End Study - Contrast Media Used In Study Contrast Total Opened (mL) Total Used (mL) Total Wasted (mL) Unspecified 0 0 0 End Study - Radiation Exposure Fluoro Time (minutes) 0.0 End Study - Patient Disposition Complications Transferred To Interventional Outcome No Telemetry Bed successful
[2017-05-18] MEDS ORDERED: METOCLOPRAMIDE HCL 10 MG/2 ML VIAL IV PRN (11:30)
[2017-05-18] MEDS ORDERED: SODIUM CHLOR 0.9% 250 ML INJ 250 ML IV PRN (11:30)
[2017-05-18] MEDS ORDERED: LIDOCAINE HCL 1% 50 ML VIAL INFIL PRN (11:30)
[2017-05-18] MEDS ORDERED: BACITRACIN OINT 0.9 GM PKT TOP ONE (11:30)
[2017-05-18] MEDS ORDERED: LORazepam 2 MG/ML VIAL IV PRN (11:30)
[2017-05-18] MEDS ORDERED: ONDANSETRON HCL 4 MG/2 ML VIAL IV PRN (11:30)
[2017-05-18] MEDS ORDERED: oxyCODONE/ACETAMINOPHEN 5 MG/325 MG TAB PO PRN ×2 (11:30)
[2017-05-18] MEDS ORDERED: ATROPINE SULFATE 1 MG/ML VIAL IV PRN (11:30)
[2017-05-18] MEDS ORDERED: LEVA500T20 PO (11:45)
[2017-05-18] MEDS ORDERED: DO NOT ADM ANY ANTICOAGULANT DRUGS PRN (11:45)
[2017-05-18] MEDS ORDERED: HYDR-3288 PO (11:45)
--- NOTE | 2017-05-18 11:48 | MA ---
cc: ETIENNE WALLACE M.D. DATE: 05/18/2017 PROCEDURE Electrophysiology study, CS cannulation, repeat electrophysiology study on Isuprel infusion. INDICATION Mr. Broderick is a 37-year-old gentleman with obesity, high blood pressure, visit to the emergency room due to syncopal episode, to undergo electrophysiology study. The risks, the nature and the benefit of the procedure were clearly stated to him. The risks include pneumothorax, cardiac perforation, stroke, need for open heart surgery and even . The patient understood and agreed to proceed. DETAILS OF PROCEDURE After written informed consent was obtained, the patient was brought to the EP lab where he was prepped and draped in the usual sterile fashion. Conscious sedation was initiated and maintained throughout the procedure by the anesthesiologist. Once sedation was verified, the right inguinal area was anesthetized with 2% Xylocaine. Using modified Seldinger technique, the right femoral vein was cannulated on four occasions and four guidewires were advanced. Over the wires three 5 and a 6 American Hemaquet were advanced. Then under fluoroscopic guidance through the 5 and 6 American Hemaquets, four 5 American Yanira curved quadripolar electrophysiology catheters were advanced and positioned on the His, upper right atrium, coronary sinus and right ventricular apex. Basic intervals were measured. They were within normal limits. Sinus node recovery time was then performed and was within normal limits. Then atrial pacing protocol was performed. Atrial pacing protocol consisted of incremental atrial pacing as well as programmed stimulation with 110 cycle length and up to one extrastimuli delivered. No tachyarrhythmia was induced. Then ventricular pacing protocol was performed. There was VA conduction. No tachyarrhythmia was induced. Isuprel infusion was initiated then atrial and ventricular pacing protocol was repeated. No tachyarrhythmia was induced. Post Isuprel no tachyarrhythmia was induced. At that point the procedure was complete. All catheters were removed. The patient is going to be kept on the table. A loop recorder will be inserted. No incident report. The patient tolerated the procedure. Blood loss minimal. FINDINGS 1. Electrocardiogram: At baseline the patient was in sinus. Post procedure the electrocardiogram was unchanged. 2. Basic interval: Basic cycle length was around 670 milliseconds. AH at 85 and HV at 55 milliseconds. 3. Atrial pacing protocol: Wenckebach of the node was 340 milliseconds at baseline. On Isuprel it was 310 milliseconds. ERP of the node was 600, 220 milliseconds. No tachyarrhythmia was induced. 4. Ventricular pacing protocol: There was VA conduction at baseline. On Isuprel no tachyarrhythmia was induced. CONCLUSIONS Negative electrophysiology study for supra and ventricular tachyarrhythmia. Normal sinus node recovery time. COMMENT/RECOMMENDATION The gentleman has recurrent syncopal episodes. At this point I am going to keep the patient on the table and a loop recorder will be inserted. Etienne Wallace MD HS/BT /11:22 AM /11:34 AM
--- NOTE | 2017-05-18 11:56 | MP ---
cc: ETIENNE WALLACE M.D. DATE OF SURGERY: 05/18/2017 PROCEDURE Loop recorder insertion. INDICATION Mr. Broderick is a 37-year-old gentleman with morbid obesity, high blood pressure and recurrent syncopal episodes, negative electrophysiology study, to undergo a loop recorder insertion. The risks, the nature and the benefit of the procedure were clearly stated to him. The risks include pneumothorax, cardiac perforation, infection, and even . He understood and agreed to proceed. DETAILS OF PROCEDURE As written informed consent was obtained prior to the electrophysiology study, the patient was kept on the table where he was prepped and draped in the usual sterile fashion. Conscious sedation was initiated and maintained throughout the procedure by the anesthesiologist. Once sedation was verified, the left parasternal area was anesthetized with 2% Xylocaine. Using the 1 cm cutter a 1 cm incision was made in the left parasternal area. Subsequently the loop was inserted under the skin. After adequate sensing was obtained, the border was re-approximated using Dermabond and Steri-Strips. No incident report. The patient tolerated the procedure. Blood loss minimal. IMPLANTED HARDWARE The implanted loop recorder is a [employer], model LNQ11, serial number [id number]. Sensing was 0.18 mV. SETTINGS Michael under 40, tachy over 190. CONCLUSION Successful loop recorder insertion. COMMENT/RECOMMENDATION The patient is going to be observed and discharged home later today. Etienne Wallace MD HS/BT /11:27 AM /11:45 AM
--- NOTE | 2017-05-19 20:19 | EKG ---
Date Performed: 05/18/2017 Time Performed: 08:42:00 PTAGE: 37 years EKG: Sinus rhythm . Normal ECG PREVIOUS TRACING : 05/12/2017 01.45 Compared to prior tracing no significant change DOCTOR: Benjamin Roberson Interpretating Date/Time 05/19/2017 20:19:07
[2017-06-26] MEDS ORDERED: CANA300T PO (19:00)
[2017-06-26] MEDS ORDERED: VENTAER INH (21:37)
[2017-06-26] MEDS ORDERED: ZITH250T PO (21:37)
[2017-06-26] MEDS ORDERED: MEDR4PAK PO (21:37)
== END 2017-05-18 13:54 | disposition home or self-care (01) ==
LOC: HDOC 06:27 → HDIC 06:28 → HDOC 13:54
PROVIDERS: ATTEND Internal Medicine Interventional Cardiology
DX: R55 Syncope and collapse (principal); R00.2 Palpitations; E66.01 Morbid (severe) obesity due to excess calories; Z68.41 Body mass index [BMI] 40.0-44.9, adult
CPT/HCPCS: 00530; 33282; 80048; 85025; 85610; 85730; 86850; 86900; 86901; 93005; 93620; 93623; C1730; C1764; J1644; J1956; J2250; J3010